=== PATIENT | female | born 2005 | race Caucasian/White ===

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

== ENCOUNTER 2023-05-27 13:38 | Outpatient (REF) | payer BC, SELFPAY ==
[2023-05-31 07:28] LABS: TSpotTB Invalid (Negative)
== END 2023-05-27 13:39 | disposition home or self-care (01) ==
LOC: HO.MANLDS 13:38
PROVIDERS: Visit Provider Physician Assistant
DX: Z11.1 Encounter for screening for respiratory tuberculosis (principal)
CPT/HCPCS: 36415; 86481

== ENCOUNTER 2023-06-07 09:24 | Outpatient (REF) | payer BC, SELFPAY ==
[2023-06-10 01:19] LABS: TS Negative Control Passed; TS Panel A 1; TS Panel B 4; TS Positive Control Passed; TSpotTB Negative (Negative)
== END 2023-06-07 09:25 | disposition home or self-care (01) ==
LOC: HO.MANLDS 09:24
PROVIDERS: Visit Provider Physician Assistant
DX: Z11.1 Encounter for screening for respiratory tuberculosis (principal)
CPT/HCPCS: 36415; 86481

== ENCOUNTER 2023-07-29 08:29 | Outpatient (REF) | payer BC, SELFPAY ==
[2023-07-29 13:32] LABS: MANUAL DIFF FLAG NO
[2023-07-29 13:51] LABS: Basophils Percent Auto 0.5 % (0-2); Eosinophils Absolute Auto 0.4 X10*3/uL (0.0-0.4); Hematocrit 43.8 % (37.0-47.0); Imm Gran Abs Auto 0.02 X10*3/uL (0.00-0.03); Imm Gran Pct Auto 0.3 % (0.0-0.4); Lymphocytes Absolute Auto 2.5 X10*3/uL (1.2-4.9); Lymphocytes Percent Auto 37.6 % (20-40); Mean Corpuscular Hemoglobin 29.8 pg (27.0-33.0); Mean Corpuscular Volume 93.2 fL (80.0-98.0); Mean Platelet Volume 10.5 fL (9.4-12.3); Monocytes Absolute Auto 0.3 X10*3/uL (0.1-1.2); Neutrophils Absolute Auto 3.4 x10*3/uL (2.0-8.3); Neutrophils Percent Auto 51.6 % (45-73); Platelet Count 261 X10*3/uL (160-400); White Blood Count 6.5 X10*3/uL (4.8-10.8)
[2023-07-29 14:55] LABS: Alanine Aminotransferase 17 U/L (0-31); Albumin Level 4.1 g/dL (3.5-5.0); Alkaline Phosphatase 55 U/L (39-117); Anion Gap 10 (12-20); Aspartate Amino Transferase 21 U/L (5-31); Bilirubin Total 0.4 mg/dL (0.0-1.0); Blood Urea Nitrogen 8 mg/dL (9-16); Calcium 9.6 mg/dL (8.4-10.2); Carbon Dioxide 27 mmol/L (22-29); Chloride 106 mmol/L (96-108); Cholesterol 170 mg/dL (<200); Estimated Glomerular Filt Rate > 60; Glucose Random 77 mg/dL (60-115); HDL Cholesterol 57 mg/dL (>40); LDL Cholesterol Calculated 89 mg/dL (<100); Potassium 4.3 mmol/L (3.3-5.1); Sodium 139 mmol/L (135-145); Total Protein 7.2 g/dL (6.5-8.0); Triglycerides 120 mg/dL (<150)
== END 2023-07-29 08:30 | disposition home or self-care (01) ==
LOC: HO.MANLDS 08:29
PROVIDERS: Visit Provider Physician Assistant
DX: Z00.00 Encounter for general adult medical examination without abnormal findings (principal)
CPT/HCPCS: 36415; 80053; 80061; 85025

== ENCOUNTER 2024-10-03 11:28 | Outpatient (AMB) | payer BC, SELFPAY ==
--- NOTE | 2024-10-03 11:44 | MHC.PC.OV ---
Intake Visit Reasons: NPV Intake Note: New patient visit Allergies Penicillins Allergy (Unknown, Verified 10/03/24 11:46) Rash Medication List - Last Reconciled 10/03/24 by Larisa Grimaldo PA-C multivitamin 1 tab PO DAILY Tobacco use date assessed: 10/03/24 Dental Screening Dental Screen Date: 10/03/24 HPI NPV HPI Details History of Present Illness The patient is a 19-year-old female presenting with requests for a physical examination and to establish care. 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 Reports being up-to-date on immunizations and has copies of her titers. 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 She notes no current medical problems and denies any recent changes in health status. Family medical history includes her father having diabetes and previously having high cholesterol, and her paternal great-grandmother having a pacemaker and history of myocardial infarction in her 50s. On physical exam noted to have enlarged tonsils. She reports experiencing recurrent streptococcal pharyngitis over the past summer, having experienced three episodes, with persistence of enlarged tonsils even after treatment. The patient currently reports snoring, which is a new development Since this strep infections.. 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 - Employment: Works at [email or web address] with plans to continue post-graduation. - Relationship status: Currently in a relationship, not actively trying for conception but tracking ovulation. - Health behaviors: Regular dental check-ups every six months, sees eye doctor occasionally, exercises regularly, perceived to be eating healthy. - Family: Lives and is originally from [place]. Review of Systems - Ear, Nose, Throat: Reports snoring. Denies ear pain, sinus pain, or frequent headaches. - Gastrointestinal: Denies nausea, vomiting, or recent unexplained weight loss. - Respiratory: Denies apnea. - Neurological: Denies visual changes and difficulty swallowing. Physical Exam General: Cooperative, healthy appearing, comfortable, no acute distress and well developed Orientation: Patient oriented x3 Limitations: No limitations Head: Normal to inspection Ears: Hearing grossly normal bilaterally, no ear pain Nose: Normal external nose present, no sinus pain Face and sinus: Normal facial exam Eyes: Appearance normal, both eyes and all related structures, no vision changes throat: Tonsillar hypertrophy noted, no exudates or erythema. oral mucosa moist. No lesions. Neck: Normal visual inspection and Yes full ROM Respiratory: Normal respiratory effort and able to speak in complete sentences. Clear to auscultation bilaterally Cardiovascular: Regular rate and rhythm. Normal S1 and S2 GI: Normal to inspection. Soft to palpation and nontender, no blood in stool or urine, no nausea, vomiting, or weight loss Skin: No rashes or lesions noted Neuro: Patient oriented x3, normal reflexes, no shakiness Extremities: Normal to inspection, no swelling Results Plan - For the enlarged tonsils and snoring: Recommend a home sleep study to evaluate for obstructive sleep apnea due to new onset snoring associated with tonsillar hypertrophy. - For recurrent streptococcal pharyngitis: Monitor for recurrent symptoms. Consider ENT consultation if symptomatic episodes persist or increase in frequency, which may necessitate surgical intervention. - For family history of diabetes and hyperlipidemia: Perform laboratory tests, including a complete blood count, comprehensive metabolic panel, lipid profile, and thyroid function tests. - Preventive care: Educate on the continuation of vitamins to support health during potential planning. Patient was informed and verbally consented to the use of an ambient scribe for clinic note documentation during this visit. Discussion Notes I discussed the potential for obstructive sleep apnea with the patient given the enlargement of her tonsils and recent onset of snoring. I emphasized the importance of evaluating this with a home sleep study, given its convenience and her clinical indications. The risk and complications of adult tonsillectomy, namely bleeding, were highlighted if her condition would require surgical consultation in the future. We reviewed her family medical history noting the importance of monitoring her blood glucose and lipid levels due to hereditary risks. For her ongoing care, I recommended maintaining her regular dental and optometry visits and exercise routine. Patient Instructions - Proceed with a home sleep study to assess for sleep apnea. - Undergo laboratory tests while fasting including CBC, comprehensive metabolic panel, lipid profile, and thyroid function tests. - Continue current exercise and nutritional habits. - Maintain vitamins for health support. - Check your patient portal for lab results and communicate with me if there are any concerns. - Schedule follow-up based on lab results or if new symptoms develop. 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 1. Little interest or pleasure in doing things: not at all 2. Feeling down, depressed, or hopeless: not at all 3. Trouble falling or staying asleep, or sleeping too much: not at all 4. Feeling tired or having little energy: not at all 5. Poor appetite or overeating: not at all 6. Feeling bad about yourself - or that you are a failure or have let yourself or your family down: not at all 7. Trouble concentrating on things, such as reading the newspaper or watching television: not at all 8. Moving or speaking so slowly that other people could have noticed. Or the opposite - being so fidgety or restless that you have been moving around a lot more than usual: not at all 9. Thoughts that you would be better off or of hurting yourself in some way: not at all Total score: 0 Source: Developed by Drs. Wenceslao Partida, Merry Perla, Dileep Douglas and colleagues, with an educational agustín from [employer]. Thrive Questionnaire I am a: Patient What is your living situation today?: I have a steady place to live Within the past 12 months, did the food you bought not last and you didn't have the money to get more?: Never true Within the past 12 months, did you worry whether your food would run out before you got money to buy more?: Never true Do you have trouble paying for medicines?: No Do you have trouble getting transportation to medical appointments?: No Do you have trouble paying your heating and electricity bill?: No Do you have trouble taking care of your child, family member or friend?: No Do you have trouble with day-to-day activities such as bathing, preparing meals, shopping, managing finances, etc.?: No Are you currently unemployed and looking for a job?: No Are you interested in more education?: No Please select the resources that you would like help with: None Currently or been in a relationship where the following occur: No concerns reported THRIVE Score: 0 AUDIT C Alcohol Use Questionnaire (AUDIT-C) 1. How often do you have a drink containing alcohol?: 2-4 times a month 2. How many drinks containing alcohol do you have on a typical day when you are drinking?: 3 or 4 3. How often do you have six or more drinks on one occasion?: Less than monthly Total Score: 4 Score Reviewed/Action Taken: Yes RENETTA-7 AMB Questionnaire RENETTA-7 Feeling nervous, anxious, or on edge: 0 = Not at all Not being able to stop or control worryin = Not at all Worrying too much about different things: 0 = Not at all Trouble relaxin = Not at all Being so restless that it is hard to sit still: 0 = Not at all Becoming easily annoyed or irritable: 0 = Not at all Feeling afraid as if something awful might happen: 0 = Not at all Total RENETTA-7 score (0-4 normal; 5-9 mild; 10-14 moderate; 15-21 severe): 0 Source: Developed by Drs. Wenceslao Partida, Mrery Perla, Dileep Douglas and colleagues, with an educational agustín from [employer]. RENETTA-7 Assessment Billing RENETTA-7 Assessment Tool: RENETTA-7 Assessment 70259 Physical exam (Primary Care) Tobacco/Smoking Status: Tobacco use Status Tobacco use date assessed 10/03/24 10/03/24 11:52 Patient Tobacco Use Status Never used Tobacco 10/03/24 11:52 e-Cigarette/Vaping Use Never Used 10/03/24 11:52 PHQ-9: PHQ-9 Score PHQ-9: Total score 0 10/03/24 11:52 Currently or been in a relationship where the following occur: No concerns reported Coding Level of Care Code New Pt Prev Care 18-39yr(97401 Diagnoses Routine general medical examination at a health care facility Z00.00 Snoring R06.83 Additional Codes RENETTA-7 Assessment Billing - RENETTA-7 Assessment Tool: RENETTA-7 Assessment 55806 ([id number]) Assessment & Plan Assessment & Plan (1) Routine general medical examination at a health care facility: Code(s): Z00.00 - Encounter for general adult medical examination without abnormal findings (2) Snoring: Code(s): R06.83 - Snoring Category: Medical Plan . Orders: Orders Comprehensive [place]. Panel Fast Today Z00.00 - Encounter for general adult medical examination without abnormal findings TSH reflex Free T4 Today Z00.00 - Encounter for general adult medical examination without abnormal findings RT home sleep study Today J35.1 - Hypertrophy of tonsils, R06.83 - Snoring Complete Blood Count Auto Diff Today Z00.00 - Encounter for general adult medical examination without abnormal findings Lipid Panel Today Z00.00 - Encounter for general adult medical examination without abnormal findings
== END 2024-10-03 12:17 | disposition home or self-care (01) ==
PROVIDERS: Visit Provider Physician Assistant
DX: Z00.00 Encounter for general adult medical examination without abnormal findings (principal); R06.83 Snoring

== ENCOUNTER → 2024-10-03 11:28 | Outpatient (BNVA) | payer BC, SELFPAY | PROVIDERS: Visit Provider Physician Assistant | DX: Z00.00 Encounter for general adult medical examination without abnormal findings (principal); R06.83 Snoring | CPT/HCPCS: 96127 ==

== ENCOUNTER 2024-10-04 08:02 | Outpatient (REF) | payer BC, SELFPAY ==
[2024-10-04 11:11] LABS: MANUAL DIFF FLAG NO
[2024-10-04 11:27] LABS: Basophils Percent Auto 0.4 % (0-2); Eosinophils Absolute Auto 0.4 X10*3/uL (0.0-0.4); Eosinophils Percent Auto 7.2 % (0-4); Hematocrit 40.8 % (37.0-47.0); Hemoglobin 13.6 g/dl (12.0-16.0); Imm Gran Abs Auto 0.01 X10*3/uL (0.00-0.03); Imm Gran Pct Auto 0.2 % (0.0-0.4); Lymphocytes Absolute Auto 2.1 X10*3/uL (1.2-4.9); Lymphocytes Percent Auto 43.2 % (20-40); Mean Corpuscular HGB Conc 33.3 g/dl (31.0-35.0); Mean Corpuscular Volume 89.9 fL (80.0-98.0); Monocytes Absolute Auto 0.3 X10*3/uL (0.1-1.2); Monocytes Percent Auto 5.8 % (2-11); Neutrophils Absolute Auto 2.1 x10*3/uL (2.0-8.3); Neutrophils Percent Auto 43.2 % (45-73); Platelet Count 291 X10*3/uL (160-400); Red Blood Count 4.54 X10*6/uL (4.20-5.50); Red Cell Distribution Width 12.4 % (11.0-16.0); White Blood Count 4.8 X10*3/uL (4.8-10.8)
[2024-10-04 11:43] LABS: Alanine Aminotransferase 29 U/L (0-31); Albumin Level 4.3 g/dL (3.5-5.0); Alkaline Phosphatase 71 U/L (39-117); Anion Gap 12 (12-20); Aspartate Amino Transferase 28 U/L (5-31); Bilirubin Total 0.6 mg/dL (0.0-1.0); Blood Urea Nitrogen 15 mg/dL (9-16); Calcium 9.8 mg/dL (8.4-10.2); Carbon Dioxide 28 mmol/L (22-29); Chloride 104 mmol/L (96-108); Cholesterol 185 mg/dL (<200); Estimated Glomerular Filt Rate > 60; Glucose Fasting 88 mg/dL (60-99); HDL Cholesterol 59 mg/dL (>40); LDL Cholesterol Calculated 109 mg/dL (<100); Potassium 3.9 mmol/L (3.3-5.1); Sodium 140 mmol/L (135-145); Total Protein 7.4 g/dL (6.5-8.0); Triglycerides 86 mg/dL (<150)
[2024-10-04 12:01] LABS: TSH reflex Free T4 0.74 uIU/mL (0.32-4.0)
== END 2024-10-04 08:03 | disposition home or self-care (01) ==
LOC: HO.WFDLDS 08:02
PROVIDERS: Visit Provider Physician Assistant
DX: Z00.00 Encounter for general adult medical examination without abnormal findings (principal)
CPT/HCPCS: 36415; 80053; 80061; 84443; 85025

== ENCOUNTER → 2024-11-08 13:54 | Outpatient (REF) | payer BC, SELFPAY | LOC: HO.SL 13:54 | PROVIDERS: PCP Physician Assistant; Visit Provider Physician Assistant | DX: G47.10 Hypersomnia, unspecified (principal); J35.1 Hypertrophy of tonsils; R06.83 Snoring | CPT/HCPCS: 95806 ==

== ENCOUNTER → 2024-11-08 14:03 | Outpatient (BNV) | payer BC, SELFPAY | PROVIDERS: PCP Physician Assistant; Visit Provider Internal Medicine | DX: R06.83 Snoring (principal); G47.10 Hypersomnia, unspecified | CPT/HCPCS: 95806 ==

== ENCOUNTER 2024-11-28 09:38 | Outpatient (AMB) | payer BC, SELFPAY ==
--- NOTE | 2024-11-28 09:49 | MHC.PC.OV ---
Vital Signs 11/28/24 09:54 Weight 149 lb 4 oz BP 108/84 Blood Pressure Location Rt brachial Position Sitting Pulse 77 Pulse Source Pulse Oximeter Temp 98.4 F Temp Source Oral Pulse Oximetry (%) 98 Oxygen Delivery Method Room Air Intake Visit Reasons: Cold and eye twitch lasting several weeks Intake Note: Cold symptoms ongoing. Nasal congestion, sore throat. Symptoms come and go over the past month. Eye twitching. 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 She states that her symptoms would start in last for 3-5 days and then she would get better then she would get sick again. It was sinus congestion, postnasal drip in the last time she got sick it felt like it was mostly in her chest. She currently feels fine but she is worried that she has gotten sick a few times. She has been trying to eat healthy and sleep enough. She has been around people in his not sure if anyone has been sick. She has not taken anything for her symptoms. She denies any current sinus pain or pressure, fevers, chills or cough. She does still get some postnasal drip. She is not sure if she has any allergens. She has not lost any weight or noticed any lymph node swelling. No fatigue. No change significantly in appetite. No nausea or vomiting. No current abdominal pain however, last week she did have her menses and had some pain with that. This has since resolved. No urinary symptoms, diarrhea or blood in the stool. She is interested in her vitamin-D levels that she has a history of vitamin-D deficiency. Not currently on supplements. 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 1. Little interest or pleasure in doing things: not at all 2. Feeling down, depressed, or hopeless: not at all 3. Trouble falling or staying asleep, or sleeping too much: not at all 4. Feeling tired or having little energy: not at all 5. Poor appetite or overeating: not at all 6. Feeling bad about yourself - or that you are a failure or have let yourself or your family down: not at all 7. Trouble concentrating on things, such as reading the newspaper or watching television: not at all 8. Moving or speaking so slowly that other people could have noticed. Or the opposite - being so fidgety or restless that you have been moving around a lot more than usual: not at all 9. Thoughts that you would be better off or of hurting yourself in some way: not at all Total score: 0 Depression Screening Interpretation: Negative Depression Screening Done: Yes 44808 - PHQ-9 Billing: Yes Source: Developed by Drs. Wenceslao Partida, Merry Perla, Dileep Douglas and colleagues, with an educational agustín from [employer]. Thrive Questionnaire Date Thrive assessed: 11/28/24 I am a: Patient What is your living situation today?: I have a steady place to live Within the past 12 months, did the food you bought not last and you didn't have the money to get more?: Never true Within the past 12 months, did you worry whether your food would run out before you got money to buy more?: Never true Do you have trouble paying for medicines?: No Do you have trouble getting transportation to medical appointments?: No Do you have trouble paying your heating and electricity bill?: No Do you have trouble taking care of your child, family member or friend?: No Do you have trouble with day-to-day activities such as bathing, preparing meals, shopping, managing finances, etc.?: No Are you currently unemployed and looking for a job?: No Are you interested in more education?: I choose not to answer this question Please select the resources that you would like help with: None Currently or been in a relationship where the following occur: No concerns reported THRIVE Score: 0 AUDIT C Alcohol Use Questionnaire (AUDIT-C) 1. How often do you have a drink containing alcohol?: 2-4 times a month 2. How many drinks containing alcohol do you have on a typical day when you are drinking?: 1 or 2 3. How often do you have six or more drinks on one occasion?: Less than monthly Total Score: 3 RENETTA-7 AMB Questionnaire RENETTA-7 Date RENETTA - 7 assessed: 11/28/24 Feeling nervous, anxious, or on edge: 0 = Not at all Not being able to stop or control worryin = Not at all Worrying too much about different things: 0 = Not at all Trouble relaxin = Not at all Being so restless that it is hard to sit still: 0 = Not at all Becoming easily annoyed or irritable: 0 = Not at all Feeling afraid as if something awful might happen: 0 = Not at all Total RENETTA-7 score (0-4 normal; 5-9 mild; 10-14 moderate; 15-21 severe): 0 Source: Developed by Drs. Wenceslao Partida, Merry Perla, Dileep Douglas and colleagues, with an educational agustín from [employer]. RENETTA-7 Assessment Billing RENETTA-7 Assessment Tool: RENETTA-7 Assessment 21183 Physical exam (Primary Care) Vital Signs: Last Vital Signs Temp 98.4 F 11/28/24 09:54 Pulse 77 11/28/24 09:54 BP 108/84 11/28/24 09:54 Pulse Ox 98 11/28/24 09:54 Oxygen Delivery Method Room Air 11/28/24 09:54 Tobacco/Smoking Status: Tobacco use Status Tobacco use date assessed 10/03/24 11/28/24 09:52 Patient Tobacco Use Status Never used Tobacco 11/28/24 09:52 e-Cigarette/Vaping Use Never Used 11/28/24 09:52 PHQ-9: PHQ-9 Score PHQ-9: Total score 0 11/28/24 09:55 Depression Screening Interpretation: Negative Thrive Assessment: Date of Thrive Assessment Date Thrive assessed 11/28/24 11/28/24 09:55 Currently or been in a relationship where the following occur: No concerns reported Const Orientation/consciousness: patient oriented x3 HENMT Other: TMs have small air-fluid levels bilaterally. Nasal mucosa edematous and pale. No drainage noted. Slight tonsillar hypertrophy but no erythema or exudates. Sinus is nontender. Ears: hearing grossly normal bilaterally Neck Thyroid: Thyroid normal Lymphatic: no lymphadenopathy noted Resp Auscultation: clear to auscultation bilaterally Cardio Rate: regular rate Rhythm: regular rhythm Heart sounds: S1 normal heart sound present and S2 normal heart sound present GI Inspection: Yes normal to inspection Palpation (GI): Soft to palpation and Other GI palpation findings present (nontender, no cva tenderness) Auscultation: normoactive bowel sounds Rectal Exam - Female: deferred Skin General skin exam: no rashes or lesions noted Neuro General: patient oriented x3, gait normal and no focal motor deficits Coding Level of Care Code Est Pt Level 4 (68825) Complex EM visit Add On G2211 Diagnoses History of frequent URI Z87.09 PND (post-nasal drip) R09.82 Vitamin D deficiency E55.9 Additional Codes RENETTA-7 Assessment Billing - RENETTA-7 Assessment Tool: RENETTA-7 Assessment 47973 ([id number]) PHQ-9 - 57583 - PHQ-9 Billing: Yes ([id number]) Assessment & Plan Assessment & Plan (1) History of frequent URI: Code(s): Z87.09 - Personal history of other diseases of the respiratory system Category: Medical Plan: Labs ordered today. We will follow up pending test results. Referral to Allergy and immunology. Advised to trial Flonase. (2) PND (post-nasal drip): Code(s): R09.82 - Postnasal drip Category: Medical Plan: As listed above (3) Vitamin D deficiency: Code(s): E55.9 - Vitamin D deficiency, unspecified Category: Medical Plan: Labs ordered today. Plan Follow up if anything worsens or changes, returns or if symptoms fail to improve like we talked about with the Flonase. Patient understands and agrees with the plan. Orders: Orders Comprehensive [place]. Panel Fast Today E55.9 - Vitamin D deficiency, unspecified, R09.82 - Postnasal drip, Z87.09 - Personal history of other diseases of the respiratory system Vitamin B12 and Folate Today E55.9 - Vitamin D deficiency, unspecified, R09.82 - Postnasal drip, Z87.09 - Personal history of other diseases of the respiratory system Magnesium Today E55.9 - Vitamin D deficiency, unspecified, R09.82 - Postnasal drip, Z87.09 - Personal history of other diseases of the respiratory system Complete Blood Count Auto Diff Today E55.9 - Vitamin D deficiency, unspecified, R09.82 - Postnasal drip, Z87.09 - Personal history of other diseases of the respiratory system TSH reflex Free T4 Today E55.9 - Vitamin D deficiency, unspecified, R09.82 - Postnasal drip, Z87.09 - Personal history of other diseases of the respiratory system IRON PROFILE Today E55.9 - Vitamin D deficiency, unspecified, R09.82 - Postnasal drip, Z87.09 - Personal history of other diseases of the respiratory system Vitamin D 1,25 dihydroxy Today E55.9 - Vitamin D deficiency, unspecified, R09.82 - Postnasal drip, Z87.09 - Personal history of other diseases of the respiratory system Referrals Allergy & Immunology Referral R09.82 - Postnasal drip, Z87.09 - Personal history of other diseases of the respiratory system Medications: New fluticasone propionate 50 mcg/actuation (Flonase Allergy Relief) administer into each nostril 1 spray intranasal BID 16 grams 0RF
[2024-11-28 09:54] VITALS: BP 108/84; PULSE 77; TEMP 36.9; O2SAT 98
== END 2024-11-28 10:39 | disposition home or self-care (01) ==
PROVIDERS: PCP Physician Assistant; Visit Provider Physician Assistant
DX: Z87.09 Personal history of other diseases of the respiratory system (principal); R09.82 Postnasal drip; E55.9 Vitamin D deficiency, unspecified

== ENCOUNTER → 2024-11-28 09:38 | Outpatient (BNVA) | payer BC, SELFPAY | PROVIDERS: PCP Physician Assistant; Visit Provider Physician Assistant | DX: R09.82 Postnasal drip (principal); E55.9 Vitamin D deficiency, unspecified; Z87.09 Personal history of other diseases of the respiratory system | CPT/HCPCS: 96127 ==

== ENCOUNTER 2024-11-28 10:57 | Outpatient (REF) | payer BC, SELFPAY ==
[2024-11-28 14:27] LABS: MANUAL DIFF FLAG NO
[2024-11-28 14:33] LABS: Basophils Percent Auto 0.5 % (0-2); Eosinophils Absolute Auto 0.3 X10*3/uL (0.0-0.4); Eosinophils Percent Auto 5.3 % (0-4); Hematocrit 41.8 % (37.0-47.0); Hemoglobin 13.7 g/dl (12.0-16.0); Imm Gran Abs Auto 0.01 X10*3/uL (0.00-0.03); Imm Gran Pct Auto 0.2 % (0.0-0.4); Lymphocytes Absolute Auto 2.1 X10*3/uL (1.2-4.9); Lymphocytes Percent Auto 37.5 % (20-40); Mean Corpuscular HGB Conc 32.8 g/dl (31.0-35.0); Mean Corpuscular Hemoglobin 29.5 pg (27.0-33.0); Mean Corpuscular Volume 90.1 fL (80.0-98.0); Mean Platelet Volume 9.9 fL (9.4-12.3); Monocytes Absolute Auto 0.3 X10*3/uL (0.1-1.2); Monocytes Percent Auto 4.9 % (2-11); Neutrophils Percent Auto 51.6 % (45-73); Platelet Count 330 X10*3/uL (160-400); Red Blood Count 4.64 X10*6/uL (4.20-5.50); Red Cell Distribution Width 12.2 % (11.0-16.0); White Blood Count 5.7 X10*3/uL (4.8-10.8)
[2024-11-28 14:52] LABS: Alanine Aminotransferase 33 U/L (0-31); Albumin Level 4.5 g/dL (3.5-5.0); Alkaline Phosphatase 71 U/L (39-117); Anion Gap 7 (12-20); Aspartate Amino Transferase 28 U/L (5-31); Bilirubin Total 0.4 mg/dL (0.0-1.0); Blood Urea Nitrogen 11 mg/dL (9-16); Calcium 9.7 mg/dL (8.4-10.2); Carbon Dioxide 28 mmol/L (22-29); Chloride 109 mmol/L (96-108); Estimated Glomerular Filt Rate > 60; Glucose Fasting 82 mg/dL (60-99); Iron 103 mcg/dL (30-160); Magnesium 2.3 mg/dL (1.6-2.6); Percent Iron Saturation 34 % (15-50); Potassium 4.2 mmol/L (3.3-5.1); Sodium 140 mmol/L (135-145); Total Iron Binding Capacity 307 mcg/dL (228-428); Total Protein 8.1 g/dL (6.5-8.0); Unsaturated Iron Binding 204 ug/dL
[2024-11-28 15:11] LABS: TSH reflex Free T4 0.61 uIU/mL (0.32-4.0)
[2024-11-28 15:16] LABS: Folate 17.5 ng/mL (> or = 4.0); Vitamin B12 861 pg/mL (200-900)
[2024-12-03 00:59] LABS: VITAMIN D (1,25 OH) D3 68 pg/mL; Vit D (1,25-Dihydroxy) Total 68 pg/mL (18-72); Vitamin D (1,25 OH) D2 <8 pg/mL
== END 2024-11-28 10:58 | disposition home or self-care (01) ==
LOC: HO.WFDLDS 10:57
PROVIDERS: Visit Provider Physician Assistant
DX: Z87.09 Personal history of other diseases of the respiratory system (principal); R09.82 Postnasal drip; E55.9 Vitamin D deficiency, unspecified
CPT/HCPCS: 36415; 80053; 82607; 82652; 82746; 83540; 83735; 84443; 85025

== ENCOUNTER 2024-12-27 08:21 | Outpatient (REF) | payer BC, SELFPAY ==
--- OUTSIDE RECORDS SUMMARY | 2024-12-27 08:27 | XMS_ITS | Data Portability ---
Author Organization [facility] Home Service Address [address] [place] [address] Assessment Encounter Date Assessment Date Assessment LastModified by Organization Details LastModified Time 02/21/2024 02/21/2024 Patient agreed and verbally consents to this audio and video Telehealth appt via a secure platform [email or web address] Not available 02/21/2024 14:53:32 Plan of Treatment Reminders Order Date Submit Date Provider Last Modified By Organization Details Last Modified Time Details Appointments ANNUAL EXAM 2024 01:30P GORDON CHRIS Not available Not available Not available Lab CMP, serum or plasma 2022 023 [facility], [address] [place] [address], [id number], 08/01/2023 11:52:32 CBC w/ auto diff 2022 023 [facility], [address] [place] [address], [id number], 07/15/2023 09:45:29 lipid panel, serum 2022 023 [facility], [address] [place] [address], [id number], 07/15/2023 09:45:29 PPD (purified protein derivativ e), skin test 2021 022 [email or web address] [facility], [address] [facility], [address], [place], [address], 07/02/2022 10:16:44 Referral hand surgeon referral 2022 023 [email or web address] Vizcarra MD, [address] [place] [address], [id number], 05/24/2023 08:18:48 Procedures None recorded. Surgeries None recorded. Imaging None recorded. Medication Orders Medrol (Teo) 4 mg tablets in a dose pack 2023 024 [id number], [address] [place], [address], 04/13/2024 09:35:42 Zithromax Z-Teo 250 mg tablet 2023 024 [facility], [address] [place], [address], 02/21/2024 14:57:30 Diflucan 150 mg tablet 2023 024 [facility], [address] [place], [address], 02/21/2024 14:57:30 Patient TargetsNo targets recorded. Patient InstructionsNo instructions recorded. Reason for Referral Hand Surgeon Referral for Ga nglion cyst of right hand cyst of the right hand vs calcium deposit right hand around base of the little finger Referring Physician: Alyssa Womack, Internal Medicine, Encounter Date: 05/20/2023 Results Created Date Observation Date Name Description Value Unit Range Abnormal Flag Note LastModifiedBy Organization Detail LastModifiedTime 07/02/20 22 07/02/2022 PPD (beth fied prote in deriv ative ), skin test TB negati ve Not Available [facility] [address] [facility] [address], [place], [address], 07/02/2022 10:07:04 Result Notes None recorded. Problems Name Problem SNOMED Code Status Onset Date Resolution Date Notes Provider Name and Address Organization Details Recorded Time Urinary tract infectio us disease 30948631 Completed 202006/15/2021 GORDON BIGGS [address] [place], [address], [facility] 1 10:09:18 Hypermet ropia 95491970 Active 2020 wears reading glasses & gets annual exams slightly GORDON BIGGS [address] [place], [address], [facility] 1 10:11:27 Skin lesion 06273743 Active 2021 GORDON BIGGS [address] [place] [address], [phone], [facility] 2 14:41:24 Candidia sis of vagina 80948260 Active 2022 GORDON BIGGS [address] [place] [address], [phone], [facility] 3 10:12:50 Motion sickness 68798253 Active 2022 GORDON BIGGS [address] [place] [address], [phone], [facility] 3 15:45:38 Ganglion cyst of right hand 7838902888 45651 Active 2022 GORDON BIGGS [address] [place] [address], [phone], [facility] 3 14:52:42 Acute bronchit is 51795008 Active 2023 GORDON BIGGS [address] [place] [address], [phone], [facility] 4 10:46:59 Streptoc occal sore throat 92757807 Active 2023 GORDON BIGGS [address] [place] [address], [phone], [facility] 4 14:53:27 Problem Notes None recorded. Procedures Surgical History Date Name Laterality Status Provider Name and Address Organization Details Recorded Time 05/04/20 21 extraction of wisdom tooth completed GORDON BIGGS [address] [place] [address], [phone], [facility] 06/15/2021 10:17:26 Imaging Results None recorded. Procedure Notes None recorded. Medical Equipment None Reported. Allergies Allergen ID Allergen Name Allergen Category Reaction Reaction Severity Criticality Documentation Date Start Date Code Code System Note Provider Name and Address Organization Details Recorded Time 4645 penicilli n V Not available rash moderate Not available 06/09/2021 7984 RxNorm Angelica Behzad maxwell [facility] 14:55:32 Medications Name Sig Start Date Stop Date Status Note LastModified by Organization Details LastModified Time prednisone 10 mg tablet 50 mg x 3 days40 mg x 3 days30 mg x 3 days20 mg x 3 days10 mg x 3 days active Not Available Not Available No t Available azithromyci n 250 mg tablet TAKE 2 TABLETS BY MOUTH TODAY, THEN TAKE 1 TABLET DAILY FOR 4 DAYS DIRECTED active Not Available Not Available No t Available fluconazole 150 mg tablet TAKE 1 TABLET BY MOUTH EVERY DAY FOR 2 DAYS active Not Available Not Available No t Available hydrocodone 5 mg-acetamin ophen 325 mg tablet TAKE 1 TABLET BY MOUTH EVERY 6 HOURS NEEDED 10/30 completed Not Available Not Available Not Available Claritin 10 mg tablet Take 1 tablet every day by oral route. active Not Available Not Available No t Available sumatriptan 25 mg tablet TAKE 1 TABLET BY MOUTH EVERY DAY; PRN 07/15 completed Not Available Not Available Not Available metronidazo le 0.75 % (37.5 mg/5 gram) vaginal gel INSERT 1 APPLICATO RFUL VAGINALLY AT BEDTIME,X 5 DAYS 07/15 completed Not Available Not Available Not Available Tubersol 5 tub. unit/0.1 mL intradermal injection solution Inject 0.1 mL by intraderm al route. 07/14 completed Not Available Not Available Not Available triamcinolo ne acetonide 0.1 % topical cream APPLY THIN LAYER TOPICALLY TO THE AFFECTED AREA TWICE DAILY active Not Available Not Available No t Available lorazepam 0.5 mg tablet TAKE 1 TABLET BY MOUTH 1 HOUR PRIOR TO DENTAL VISIT 07/15 completed Not Available Not Available Not Available cephalexin 500 mg capsule TAKE 1 CAPSULE BY MOUTH EVERY 6 HOURS FOR 10 DAYS active Not Available Not Available No t Available cephalexin 250 mg/5 mL oral suspension SHAKE LQ AND TK 20 ML PO BID FOR 10 DAYS 10/30 completed Not Available Not Available Not Available mupirocin 2 % topical ointment AMEE SML AMT EXT AA TID 03/15 completed Not Available Not Available Not Available scopolamine 1 mg over 3 days transdermal patch apply 1 patch q3 days prn 07/15 completed Not Available Not Available Not Available methylpredn isolone 4 mg tablets in a dose pack TAKE 6 TABLETS ON DAY 1 DIRECTED ON PACKAGE AND DECREASE BY 1 TAB EACH DAY FOR A TOTAL OF 6 DAYS 04/13 completed Not Available Not Available Not Available doxycycline hyclate 100 mg tablet TAKE 1 TABLET BY MOUTH TWICE DAILY FOR 7 DAYS 04/13 completed Not Available Not Available Not Available nitrofurant oin monohydrate /macrocryst als 100 mg capsule TAKE 1 CAPSULE BY MOUTH EVERY 12 HOURS FOR 5 DAYS 03/15 completed Not Available Not Available Not Available Probiotic active Not Available Not Chaparrita ilable Not Available Kurvelo (28) 0.15 mg-0.03 mg tablet TAKE 1 TABLET BY MOUTH EVERY DAY active Not Available Not Available No t Available Clindamycin Pediatric 75 mg/5 mL oral solution 10/30 completed Not Available Not Available Not Available Isibloom 0.15 mg-0.03 mg tablet TAKE 1 TABLET BY MOUTH EVERY DAY 07/15 completed Not Available Not Available Not Available Vitals Date Recorded Body height Body mass index (BMI) Percentile per age and sex Body mass index (BMI) Body weight Oxygen saturation Oxygen saturation in Arterial blood by Pulse oximetry Heart rate Systolic blood pressure Diastolic blood pressure Provider Name and Address Organization Details Last Updated DateTime 2 160.02 cm 55 % 22 kg/m2 04486.4 5 g 100 % 100 % 98 /min 118 mm[Hg] 72 mm[Hg] [facility] 2 09:57:55 Date Recorded Body height Body mass index (BMI) Percentile per age and sex Body mass index (BMI) Body weight Heart rate Oxygen saturation Oxygen saturation in Arterial blood by Pulse oximetry Systolic blood pressure Diastolic blood pressure Provider Name and Address Organization Details Last Updated DateTime 3 160.02 cm 53 % 22 kg/m2 02176.4 5 g 89 /min 100 % 100 % 120 mm[Hg] 70 mm[Hg] Myrna Jimenezmond [facility] 3 14:35:07 Date Recorded Body height Body mass index (BMI) Body mass index (BMI) Percentile per age and sex Body weight Heart rate Oxygen saturation Oxygen saturation in Arterial blood by Pulse oximetry Systolic blood pressure Diastolic blood pressure Provider Name and Address Organization Details Last Updated DateTime 3 160.02 cm 22 kg/m2 53 % 39524.4 5 g 89 /min 99 % 99 % 110 mm[Hg] 70 mm[Hg] Myrna Jimenezmond [facility] 3 09:27:38 Social History Question Answer Notes LastModified by W[employer] Details LastModified Time Tobacco Smoking Status Never [facility] [place] [facility] 06/09/2021 13:58:17 What Is Your Level Of Alcohol Consumption? None Information not available 06/09/2021 What Is Your Level Of Caffeine Consumption? Occasional Information not available 06/15/2021 What Was The Date Of Your Most Recent Tobacco Screening? 07/15/2023 [email or web address] Information not available 07/15/2023 Do You Use Any Illicit Or Recreational Drugs? No Information not available 06/09/2021 Do You Or Have You Ever Used Any Other Forms Of Tobacco Or Nicotine? No Information not available 06/09/2021 Sex: Unknown Functional Status Question Answer Note LastModified by [employer] Details LastModified Time What is your exercise level? Occasional Information not available 06/15/2021 Mental Status None recorded. Family History Relationship Description Onset Age of this Age Resolved Age Notes LastModified by Organization Details LastModified Time Mother Migraine [email or web address] Not available 06/09/2021 13:57:13 Father Asthma jvanasse Not available 0 06/09/2021 13:57:18 Father Hypertensive disorder jvanasse Not available 2020 13:57:23 Father Hypercholest erolemia jvanasse Not available 2020 13:57:29 Father Gastroesopha geal reflux disease jvanasse Not available 2020 13:57:35 Father Diabetes mellitus jvanasse Not available 2020 13:57:40 Medical History No medical history recorded. Gynecological HistoryNo gynecological history recorded. Obstetrics History GPAL:G 0 P 0 0 0 0 Immunizations Vaccine Type Date Status Note Provider Nam e and Address Organization Details Recorded Time pneumococcal conjugate PCV 7 4 enrique Wen [facility] 06/09/2021 14:56:35 [facility] 14:56:35 Influenza, split virus, quadrivalent, PF 6 enrique Wen [facility] 06/09/2021 14:56:35 COVID-19, mRNA, LNP-S, PF, 30 mcg/0.3 mL dose 1 enrique Wen [facility] 06/09/2021 14:56:35 meningococcal MCV4P 9 [facility] 14:56:35 COVID-19, mRNA, LNP-S, PF, 30 mcg/0.3 mL dose 1 enrique Wen [facility] 06/09/2021 14:56:35 pneumococcal conjugate PCV 7 4 enrique Wen [facility] 06/09/2021 14:56:35 IPV 7 enrique Wen [facility] 06/09/2021 14:56:35 Hib, unspecified formulation 3 enrique Wen [facility] 06/09/2021 14:56:35 [facility]icella [facility] 14:56:35 DTaP 3 enrique Wen [facility] 06/09/2021 14:56:35 Influenza, split virus, quadrivalent, PF 0 enrique Wen [facility] 06/09/2021 14:56:35 Hep A, ped/adol, 2 dose 9 completed Angelica Wen alissa, [facility] 06/09/2021 14:56:35 Hib, unspecified formulation 4 completed Angelica Wen null, [facility] 06/09/2021 14:56:35 Hep A, ped/adol, 2 dose 8 completed Angelica maxwell, [facility] 06/09/2021 14:56:35 Tdap 5 completed Angelica Wen null, [facility] 06/09/2021 14:56:35 DTaP 7 completed Angelica maxwell, [facility] 06/09/2021 14:56:35 HPV9 6 [facility] 14:56:35 DTaP 4 completed Angelica maxwell, [facility] 06/09/2021 14:56:35 Tdap 1 completed [facility] 14:56:35 DTaP 5 completed Angelica Wen alissa, [facility] 06/09/2021 14:56:36 Hib, unspecified formulation 3 [facility] 14:56:36 IPV 3 completed Angelica maxwell, [facility] 06/09/2021 14:56:36 MMR 8 completed [facility] 14:56:36 Hep B, unspecified formulation 3 [facility] 14:56:36 Influenza, split virus, quadrivalent, PF 7 [facility] 14:56:36 pneumococcal conjugate PCV 7 [facility] 14:56:36 Influenza, split virus, quadrivalent, preservative 9 completed Angelica maxwell [facility] 06/09/2021 14:56:36 Hep B, unspecified formulation 4 enrique maxwell [facility] 06/09/2021 14:56:36 HPV9 7 enrique maxwell [facility] 06/09/2021 14:56:36 meningococcal ACWY, unspecified formulation 5 completed Angelica maxwell [facility] 06/09/2021 14:56:36 IPV 4 enrique maxwell [facility] 06/09/2021 14:56:36 pneumococcal conjugate PCV 7 3 enrique maxwell [facility] 06/09/2021 14:56:36 MMR 4 enrique maxwell [facility] 06/09/2021 14:56:36 varicella 8 completed Angelica maxwell [facility] 06/09/2021 14:56:36 IPV 3 enrique maxwell [facility] 06/09/2021 14:56:36 Hib, unspecified formulation 4 enrique maxwell [facility] 06/09/2021 14:56:36 Hep B, unspecified formulation 3 enrique maxwell [facility] 06/09/2021 14:56:36 Past Encounters Encounter ID Performer Location Encounter Start Date Encounter Closed Date Diagnosis/Indication Diagnosis SNOMED-CT Code Diagnosis ICD10 Code Diagnosis Note [id number] GORDON BIGGS [facility] [address] [place] [address],[place] [address] 06/15/2021 09:50:44 06/15/2021 10:29:23 Migraine with aura 7176639 G43.109 stable, only it gets Adult heal th examination 731053558 Z00.00 will fu with BW for baseline in our systemBP is excellent today [id number] Reilly Bishop DO [facility] [address] [address] 06/22/2021 09:31:41 06/22/2021 09:54:16 Tuberculosis screening 085706278 Z11.1 [id number] Reilly Bishop [facility] [address] [address] 06/24/2021 09:33:23 06/24/2021 10:38:34 Tuberculosis screening 943973761 Z11.1 [id number] GORDON BIGGS [facility] [address] [address] 03/15/2022 14:15:08 03/17/2022 08:29:33 Skin lesion 52934343 L98.9 will fu with steriod cream [id number] Reilly Bishop [facility] [address] [address] 06/30/2022 09:52:39 06/30/2022 10:21:42 Tuberculosis screening 024179531 Z11.1 [id number] Reilly Bishop [facility] [address] [facility] [address] [address] 07/02/2022 09:53:20 07/02/2022 10:51:56 Tuberculosis screening 040111620 Z11.1 [id number] GORDON BIGGS [facility] [address] [facility] [address] [address] 07/14/2022 09:50:44 07/14/2022 10:16:18 Active or passive immunization 540605170 Z23 up to date Adult heal th examination 770293808 Z00.00 vitals excellent [id number] GORDON BIGGS [facility] [address] [facility] [address] [address] 05/20/2023 14:13:00 05/20/2023 15:40:40 Ganglion cyst of right hand 4423633591 44653 M67.441 will set up with hand surgeon in case it doesn't resolve on it's own or gets bigger [id number] GORDON BIGGS [facility] [address] [facility] [address] [address] 07/15/2023 09:21:34 07/15/2023 11:27:04 Active or passive immunization 759601667 Z23 up to date Adult heal th examination 710627481 Z00.00 vitals excellent [id number] GORDON BIGGS [facility] [address] [facility] [address] [address] 02/21/2024 14:15:53 02/21/2024 15:31:51 Streptococcal sore throat 09040889 J02.0 sounds more like strep than tonsil stones, will update me tuesdayalso use warm salt water gargles Candidiasis of vagina 72 215389 B37.31 gets yeast infection easily afte abx usage Health Concerns Section Related Observation LastModified by Organization Detai ls LastModified Time None Recorded Concern Status LastModified by Organization Details LastModified Time None Recorded Advance Directives Directive None Recorded Payers Encounter Date Sequence Insurance Name Policy Number Policy Oconnor Covered Member ID Oconnor Member ID Guarantor Name 07/02/2022 1 [place] [facility] [place] [id number] Alvin Wilkins [id number] 07/14/2022 1 [place] [facility] [place] [id number] Alvin Wilkins [id number] 05/20/2023 1 [place] [facility] [place] [id number] Alvin Wilkins [id number] 07/15/2023 1 [place] [facility] [place] [id number] Alvin Wilkins [id number] 02/21/2024 1 [place] [facility] [place] [id number] Alvin Wilkins [id number] Notes Date Note Type Note Provider Name a nd Address Organization Details Recorded Time 2 text/html Annual WellnessReported bypatient.Diet and Nutrition:healthy diet Fracture Risk:no history of fractures; no recent explained fracture; no sudden unexplained fractures; no previous musculoskeletal injuries Physical Activity:exercises on a regular basis; recent increase in physical activity; good physical condition Additional Lifestyle Factors:no tobacco use; no alcohol intake Depression Risk:never feels sad, empty, or tearful; no loss of interest in activities; no significant changes in weight; no sleep disturbances or insomnia; no agitation; no loss of energy; no feelings of worthlessness or guilt; no thoughts of suicide; no history of depression; no history of mood disorders Hearing:no loss of hearing Vision:no vision problems GORDON BIGGS [address] [place], [address], [facility] 07/14/2022 10:14:44 3 text/html lump in the right hand very small pea-sized lump in the right hand along the base of the right pinkyattached to the tendon or bone, is not freely movable in the tissuevery hard, not fluctuant possible cyst vs calcium depositwill see if it resolves on its own if not a referral was placed GORDON BIGGS [address] [place], [address] 05/20/2023 14:56:12 3 text/html Annual WellnessReported bypatient.Diet and Nutrition:healthy diet; discussed vitamin and supplement use; discussed portion control; discussed maintaining calcium balance; discussed diet improvement Fracture Risk:no history of fractures; no recent explained fracture; no sudden unexplained fractures; no previous musculoskeletal injuries Physical Activity:exercises on a regular basis; recent increase in physical activity; good physical condition; discussed weightbearing activities; discussed exercise habits Additional Lifestyle Factors:no tobacco use; no alcohol intake Depression Risk:never feels sad, empty, or tearful; no loss of interest in activities; no significant changes in weight; no sleep disturbances or insomnia; no agitation; no loss of energy; no feelings of worthlessness or guilt; no thoughts of suicide; no history of depression; no history of mood disorders Hearing:no loss of hearing Vision:no vision problems discussed recurrent yeast infection GORDON BIGGS [address] [place], [address], [facility] 07/15/2023 09:44:20 4 text/html c/o sore throat The patient is participating in this appointment via telemedicine communication with a phone call/video calling service ([employer])The patient consents to use of these platforms in place of an in-person appointment due to either sick symptoms the patient is presenting with or current office closure due to COVID exposure in order to keep our office staff and patients safe possible strep throatwhite spots on tonsils, more swollen than usualthought it was tonsil stones but they are not movable, more likely exudatesworks around childrenswollen LN's and nasal congestionno fever pain with swallowingwill start on treatment GORDON BIGGS [address] [facility], [place], [address], [facility] 02/21/2024 14:59:50 OBGyn Episode No OBEpisode recorded.
[2024-12-27 11:57] LABS: Alanine Aminotransferase 19 U/L (0-31); Albumin Level 4.2 g/dL (3.5-5.0); Alkaline Phosphatase 68 U/L (39-117); Aspartate Amino Transferase 25 U/L (5-31); Bilirubin Direct 0.2 mg/dL (0.0-0.5); Bilirubin Total 0.3 mg/dL (0.0-1.0); HCG Quantitative 1167 mIU/mL; Total Protein 7.6 g/dL (6.5-8.0)
== END 2024-12-27 08:22 | disposition home or self-care (01) ==
LOC: HO.WFDLDS 08:21
PROVIDERS: Visit Provider Physician Assistant
DX: N91.2 Amenorrhea, unspecified (principal); R79.89 Other specified abnormal findings of blood chemistry
CPT/HCPCS: 36415; 80076; 84702